=== PATIENT | male | born 1995 | race Caucasian/White ===

== ENCOUNTER 2022-12-05 19:31 | Outpatient (CLI) | payer OTHER | END 2022-12-05 19:32 | disposition home or self-care (01) | LOC: SC 19:31 | PROVIDERS: ATTEND Nurse Practitioner Family | DX: R06.83 Snoring (principal); G47.8 Other sleep disorders; E66.9 Obesity, unspecified; Z68.31 Body mass index [BMI] 31.0-31.9, adult | CPT/HCPCS: 95810 ==

== ENCOUNTER 2022-12-20 11:15 | Outpatient (CLI) | payer OTHER ==
--- NOTE | 2022-12-20 12:07 | SLEEP CARE CONSULTATION ---
Information from patient questionnaire entered by Indiana Grijalva. I have reviewed and concur with the information entered by Indiana Grijalva. This document represents the service I personally performed and the decisions made by , Huma Jiménez ARNP. History of Present Illness Service Date and Time: 12/20/2022 1115 Initial [place] Sleepiness Scale score: 10 (11/23/22) Current [place] Sleepiness Scale score: 11 (12/20/22) Additional HPI information: SALTY GIBBONS returns for follow up and results of the recently performed polysomnography. The patient was informed of the following findings: No significant sleep disordered breathing with an average AHI of 3.3 and niyah oxygen saturation of 91%. His supine AHI was elevated at 7.8. I explained the pathophysiology behind obstructive sleep apnea. Patient does not have sleep apnea and was advised how weight gain could increase the risk of developing sleep apnea in the future. I strongly encouraged the patient to lose weight. Patient does not have significant sleep disordered breathing but has elevated AHI in supine position so advised positional therapy. Methods to achieve positional management therapy were discussed; such as, positioning with pillows, wearing a T-shirt with tennis balls sewn into the back, or commercially available products. Patient has light snoring. Snoring can be reduced by weight loss. Weight loss is best achieved with diet consult. Patient instructed to contact PCP for referral. Snoring can also be treated with an oral appliance from a dentist. Advised to check insurance coverage. In addition, an ENT evaluation can be do to see if other treatment is indicated. Patient counseled not drink alcohol less than 4 hours before bedtime as it can increase snoring and apnea. Patient was cautioned about risks of drowsy driving until sleepiness symptoms resolve. Sleep Study - Results Type of Sleep Study: Polysomnography (COMPLETED 12/05/22) Prior sleep studies: No Polysomnography/Home Sleep Study results: IMPRESSION: The quality of the study is good. The patient had slightly reduced sleep efficiency frequent awakenings during the night. The sleep architecture was abnormal for mild sleep fragmentation and reduced amount of time spent in slow wave sleep (N3). Respiratory monitoring showed no significant sleep disordered breathing (AHI = 3.3) hypoxia (niyah oxygen saturation of 91%). The few respiratory events occurred almost exclusively during supine sleep (supine AHI = 7.8; non-supine = 1.54). Snore was infrequent and light in intensity. There was no significant periodic leg movement of sleep. Cardiac rhythm was normal sinus rhythm without significant arrhythmia. No abnormal behavior (parasomnia) observed during the night. Allergies and Home Medications Known drug allergies: No Drug allergies reviewed: Yes Home medication list reviewed: Yes (no changes) Allergy and home medication list: Allergies No Known Drug Allergies Allergy (Verified 12/19/22 09:52) Review of Systems Review of systems same as previous: Yes (no changes) Physical Exam Vital signs obtained and entered by: INDIANA Davis MA Blood Pressure: 122/78 (LEFT ARM) Cuff size: regular Heart Rate: 67 O2 Saturation: 98 Height: 5 ft 11 in Weight: 222 lb 3.2 oz Body Mass Index: 30.9 BMI Classification: Obese Impression and Plan Snoring, light, but no significant sleep disordered breathing. However, patient had an elevated supine AHI and should avoid sleeping supine to control apnea. Patient advised that often weight loss will reduce snoring as well as apnea risk. An oral appliance can also be used for snoring. This would require a dental consultation. Patient cautioned not to use other online appliances as can cause bite issues. Patient is advised to check if insurance will cover. An ENT consult can also be helpful to determine if any other treatment is an option. 2. Obesity, unspecified. Currently patients BMI is 30.9. Obesity increases the risk of apnea, CPAP pressure requirements and overall health risks especially cardiovascular and diabetes. Thus patient is advised to lose weight. * Avoid supine sleep * Attempt to lose weight * Avoid alcohol consumption near bedtime * The patient is cautioned about driving until sleepiness is completely resolved. * Return as needed for follow up. Counseling Topics: Weight loss health impact Visit Type: In Office Time Spent with Patient (minutes): 13 Provider Statement: I spent 100% of the Face to Face Visit with the patient with greater than 50% spent counseling the patient and coordination of care.
[2022-12-20 12:15] VITALS: BP 122/78; O2SAT 98
== END 2022-12-20 11:16 | disposition home or self-care (01) ==
LOC: SC 11:15
PROVIDERS: ATTEND Nurse Practitioner Family
DX: R06.83 Snoring (principal); E66.9 Obesity, unspecified; Z68.30 Body mass index [BMI] 30.0-30.9, adult
CPT/HCPCS: 99212